=== PATIENT | male | born 1945 | race African-American/Black ===

== ENCOUNTER 2017-11-23 03:34 | Emergency (ER) | payer MEDICARE | END 2017-11-23 04:20 | disposition home or self-care (01) | LOC: ERS 03:34 | DX: R20.2 Paresthesia of skin (principal) | CPT/HCPCS: 99283 ==

== ENCOUNTER 2018-11-07 23:02 | Emergency (ER) | payer MEDICARE ==
[2018-11-07 23:37] LABS: #Eosinphils 0.3 thou/uL (0.0-0.7); #Lymphocytes 2.3 thou/uL (1.20-3.40); #Monocytes 0.5 thou/uL (0.11-0.59); #Neutrophils 3.6 thou/uL (1.40-6.50); %Basophils 0.6 % (0.0-1.0); %Eosinophils 4.3 % (0.0-10.0); %Monocytes 7.4 % (0.0-10.0); %Neutrophils 53.6 % (42.0-75.0); Hemoglobin 9.5 g/dL (14.0-18.0); Mean Corpuscular HGB CONC 31.6 g/dL (32.0-36.0); Mean Corpuscular Hemoglobin 27.8 pg (27.0-31.0); Mean Platelet Volume 7.1 fL (7.4-10.4); Platelet Count 390 thou/uL (130-400); RBC Distribution Width 13.4 % (11.5-14.5); White Blood Cell (WBC) Count 6.6 thou/uL (4.8-10.8)
[2018-11-07 23:42] LABS: PTT 29.5 SEC (22.9-36.1); Prothrombin Time 13.2 SEC (12.0-14.7)
[2018-11-08 00:46] LABS: ALT (SGPT) 19 U/L (8-55); AST (SGOT) 17 U/L (5-34); Albumin 4.2 g/dL (3.4-4.8); Alkaline Phosphatase 74 U/L (40-150); Anion Gap 15 mmol/L (10-20); BUN (Urea Nitrogen) 11 mg/dL (8.4-25.7); Bilirubin, Total 0.2 mg/dL (0.2-1.2); Calc. Creatinine Clearance 0 mL/min (70-130); Calcium 9.4 mg/dL (7.8-10.44); Carbon Dioxide 23 mmol/L (23-31); Chloride 107 mmol/L (98-107); Estimated GFR-MDRD 49; Globulin 2.8 g/dL (2.4-3.5); Glucose 100 mg/dL (83-110); Potassium 4.1 mmol/L (3.5-5.1); Sodium 141 mmol/L (136-145)
== END 2018-11-08 01:43 | disposition home or self-care (01) ==
LOC: ERS 23:02
DX: E86.0 Dehydration (principal); Z79.899 Other long term (current) drug therapy
CPT/HCPCS: 80053; 82274; 84484; 85025; 85610; 85730; 86850; 86900; 86901; 99284

== ENCOUNTER 2020-06-17 12:13 | Emergency (ER) | payer MEDICARE | END 2020-06-17 15:54 | disposition left against medical advice (07) | LOC: ERS 12:13 | DX: Z53.21 Procedure and treatment not carried out due to patient leaving prior to being seen by health care provider (principal) ==

== ENCOUNTER 2021-01-24 14:53 | Emergency (ER) | payer OTHER, MEDICARE | END 2021-01-24 19:18 | disposition home or self-care (01) | LOC: ERS 14:53 | DX: M54.12 Radiculopathy, cervical region (principal); R20.2 Paresthesia of skin; V49.9XXA Car occupant (driver) (passenger) injured in unspecified traffic accident, initial encounter | CPT/HCPCS: 70450; 71045; 72125; 72141 ==

== ENCOUNTER 2021-09-27 05:38 | Emergency (ER) | payer MEDICARE ==
[2021-09-27 06:01] LABS: Bilirubin Negative (Negative); Blood, Urine Negative (Negative); Clarity Clear (Clear); Glucose, Urine (Dipstick) Normal (Negative); Ketone, Urine Negative (Negative); Leukocyte Negative Leu/uL (Negative); Nitrite Negative (Negative); Protein, Urine (Dipstick) Negative (Neg-Trace); Urobilinogen Normal mg/dL (Less than 2); pH, Urine 5.5 (5.0-9.0)
[2021-09-27] MEDS ORDERED: Ketorolac Tromethamine 30 MG/ML VIAL ONE (07:28)
== END 2021-09-27 09:03 | disposition home or self-care (01) ==
LOC: ERS 05:38
DX: M79.661 Pain in right lower leg (principal); G90.09 Other idiopathic peripheral autonomic neuropathy
CPT/HCPCS: 81003; 96372; J1885

== ENCOUNTER 2022-09-12 21:49 | Emergency (ER) | payer MEDICARE ==
[2022-09-12] MEDS ORDERED: Orphenadrine Citrate 60 MG/2 ML VIAL ONE (23:08)
== END 2022-09-12 23:29 | disposition home or self-care (01) ==
LOC: ERS 21:49
DX: G62.9 Polyneuropathy, unspecified (principal)
CPT/HCPCS: J2360

== ENCOUNTER 2022-12-12 20:15 | Emergency (ER) | payer MEDICARE ==
[2022-12-12 21:41] LABS: Bilirubin Negative (Negative); Blood, Urine 3+ (Negative); Clarity Turbid (Clear); Glucose, Urine (Dipstick) Normal (Negative); Ketone, Urine Negative (Negative); Leukocyte 250 Leu/uL (Negative); Nitrite Negative (Negative); Protein, Urine (Dipstick) 30 mg/dL (Neg-Trace); Specific Gravity, Urine 1.013 (1.002-1.036); Urobilinogen Normal mg/dL (Less than 2); pH, Urine 5.5 (5.0-9.0)
[2022-12-12 21:47] LABS: Bacteria/HPF 2+ HPF (None Seen); RBC/HPF Greater than 50 HPF (0-3); Squamous Epithelial None Seen HPF (0-3); Yeast-Budding None Seen HPF (None Seen)
== END 2022-12-12 22:41 | disposition home or self-care (01) ==
LOC: ERS 20:15
DX: N39.0 Urinary tract infection, site not specified (principal)
CPT/HCPCS: 51702; 81003; 81015; 87077; 87086; 87186

== ENCOUNTER 2024-04-05 16:08 | Emergency (ER) | payer MEDICARE, OTHER ==
[~2024-04-05 16:08] MED LIST: Iopamidol 370 76% 100 ML VIAL ONE
[2024-04-05 17:08] LABS: #Basophils Less than 0.03 10x3/uL (0.0-0.2); %Basophils 0.2 % (0.0-1.0); %Eosinophils 1.4 % (0.0-10.0); %Lymphocytes 23.1 % (21.0-51.0); %Monocytes 12.7 % (0.0-10.0); %Neutrophils 62.1 % (42.0-75.0); Hematocrit 34.8 % (42.0-52.0); Hemoglobin 11.2 g/dL (14.0-18.0); Mean Corpuscular HGB CONC 32.2 g/dL (32.0-36.0); Mean Corpuscular Hemoglobin 26.3 pg (27.0-31.0); Mean Corpuscular Volume 81.7 fL (78.0-98.0); Mean Platelet Volume 9.9 fL (7.4-10.4); Platelet Count 302 10x3/uL (130-400); Red Blood Cell (RBC) Count 4.26 mill/uL (4.70-6.10)
[2024-04-05 17:25] LABS: ALT (SGPT) 17 U/L (8-55); AST (SGOT) 14 U/L (5-34); Albumin 3.5 g/dL (3.4-4.8); Alkaline Phosphatase 72 U/L (40-110); Anion Gap 15 mmol/L (10-20); BUN (Urea Nitrogen) 17 mg/dL (8.4-25.7); Bilirubin, Total 0.6 mg/dL (0.2-1.2); Calc. Creatinine Clearance 0 mL/min (70-130); Calcium 9.3 mg/dL (7.8-10.44); Carbon Dioxide 20 mmol/L (23-31); Chloride 106 mmol/L (98-107); Estimated GFR 49; Globulin 3.5 g/dL (2.4-3.5); Glucose 110 mg/dL (83-110); Potassium 3.7 mmol/L (3.5-5.1); Sodium 137 mmol/L (136-145)
[2024-04-05] MEDS ORDERED: Ondansetron PF 4 MG/2 ML Vial ONE (17:51)
== END 2024-04-05 20:11 | disposition home or self-care (01) ==
LOC: ERS 16:08
DX: K57.92 Diverticulitis of intestine, part unspecified, without perforation or abscess without bleeding (principal)
CPT/HCPCS: 36415; 74177; 80053; 83605; 83690; 85025; 87040; 96361; 96374; J2405; Q9967

== ENCOUNTER 2024-11-12 22:20 | Emergency (ER) | payer MEDICARE ==
[2024-11-13] MEDS ORDERED: Gabapentin 100 MG CAP ONE (00:16)
== END 2024-11-13 00:57 | disposition home or self-care (01) ==
LOC: ERS 22:20
DX: R20.2 Paresthesia of skin (principal)
CPT/HCPCS: 99283

== ENCOUNTER 2025-04-14 01:29 | Emergency (ER) | payer MEDICARE ==
[2025-04-14] MEDS ORDERED: Dexamethasone 10 MG/ML VIAL ONE (02:18)
== END 2025-04-14 02:29 | disposition home or self-care (01) ==
LOC: ERS 01:29
DX: G62.9 Polyneuropathy, unspecified (principal)
CPT/HCPCS: 96372; 99283; J1100